=== PATIENT | male | born 1975 | race Caucasian/White ===

== ENCOUNTER 2021-03-23 10:50 | Emergency (ER) | payer MEDICARE, MEDICAID, SELFPAY ==
[2021-03-23 11:00] VITALS: BP 118/85; PULSE 76; RESP 16; TEMP 36.8; O2SAT 98; BMI 23.1
--- NOTE | 2021-03-23 11:25 | ED.SKABFB ---
HPI - Skin/Abscess/Foreign Bdy General Chief complaint: Wound/Laceration Stated complaint: general Medical Time Seen by Provider: 03/23/21 11:25 History of Present Illness HPI narrative: Patient complains of painful lump or sore near rectum for 2-3 months, no fever no chills no abdominal pain no diarrhea Patient is being treated for HIV and says he has no detectable viral load and has been HIV positive for many years, and he has a history of receptive rectal intercourse in the past but not in recent months Related Data Allergies Allergy/AdvReac Type Severity Reaction Status Date / Time No Known Allergies Allergy Unverified 06/21/20 15:05 [No Known Allergies*] Review of Systems Review of Systems: Positive for painful rectal lump Negatives are no fever no chills no dizziness or weakness no fainting no feeling faint no abdominal pain no nausea vomiting or diarrhea no blood in the stool Yes all other systems are reviewed and are negative [facility] Past Medical History Attestation statement: The following information was validated with the patient. [facility] Narrative: Patient is HIV positive and is being treated with medication and says most recently had no detectable viral load Source: nursing notes reviewed Medical History (Updated 03/23/21 @ 11:32 by CHERRY Fonseca) Asthma Gallstone Surgical History (Updated 03/23/21 @ 11:07 by Esha Hernandez) S/P LASIK surgery of both eyes Social History Social History Advance Directives: No Advance Directives Information Provided: No Physical Exam Vital Signs: Vital Signs: Last Vital Signs Temp 98.2 F 03/23/21 11:00 Pulse 76 03/23/21 11:00 Resp 16 03/23/21 11:00 BP 118/85 03/23/21 11:00 Pulse Ox 98 03/23/21 11:00 Body Mass Index 23.1 General appearance is no acute distress, pupils are anicteric with no pallor Neck is supple Respiratory no distress Abdomen soft nontender Rectal exam there is a warty appearing growth at the 12 o'clock position of the rectal area no surrounding cellulitis or erythema no fluctuance no evidence of abscess or cellulitis Extremities full range of motion x4 Course Course Course Narrative: Patient with HIV see history and history of receptive rectal intercourse with warty appearing mass is discharged to follow with surgeon for further evaluation Patient left prior to discharge so I called his phone and left a voicemail with the phone number of the surgeon Discharge Plan Discharge Clinical Impression: Mass of perirectal soft tissue Patient Disposition: Home, Self-Care Additional Instructions: The soft tissue mass in your rectal area could be rectal warts but I am not certain and this should be seen by a surgeon to confirm what it is and for possible treatment Follow with surgeon within 1 week Return any concerns Referrals: Sebastian Montes MD [Physician] - 2 days (Perirectal mass)
== END 2021-03-23 12:19 | disposition home or self-care (01) ==
LOC: HO.ED 11:51
PROVIDERS: Emergency Provider Emergency Medicine; PCP Family Medicine
DX: K62.89 Other specified diseases of anus and rectum (principal); Z21 Asymptomatic human immunodeficiency virus [HIV] infection status
CPT/HCPCS: 99283